=== PATIENT | male | born 2000 | race African-American/Black ===

== ENCOUNTER 2025-05-02 20:30 | Emergency (ER) | payer BC ==
[2025-05-02 20:37] VITALS: TEMP 96.7
[2025-05-02] MEDS: TYLENOL 325 MG PO STA (21:10)
[2025-05-02] MEDS ORDERED: TYLENOL 325 MG ONE (21:10)
--- NOTE | 2025-05-02 21:31 | ERPHSYRPT ---
- History of Present Illness Time Seen by Provider: 05/02/25 20:32 Patient Subjective Stated Complaint: hurt foot playing basketball yesterday evening Triage Nursing Assessment: Pt ambulated into ER without diff. Pt c/o left foot pain to the top of the foot after playing basketball yesterday evening at 8pm. Pt has some tenderness and slight edema noted. Left pedal pulse strong. No obvious deformity noted. Physician History: HISTORY OF PRESENT ILLNESS 24-year-old male presents with left foot pain following a basketball injury yesterday evening around 20:00. Pain is localized to the top of the foot and is exacerbated by pressure. He took ibuprofen at home prior to arrival. He denies numbness, tingling, weakness, bruising, ecchymosis, and ankle tenderness. Allergies/Adverse Reactions: No Known Drug Allergies Allergy (Unverified 05/02/25 20:37) Home Medications: No Reportable Medications [No Reported Medications] 05/02/25 [History] Hx Tetanus, Diphtheria Vaccination/Date Given: Yes Hx Influenza Vaccination/Date Given: No Hx Pneumococcal Vaccination/Date Given: No Travel Risk - International Travel Have you traveled outside of the country in past 3 weeks: No - Emerging Infectious Disease Are you exhibiting symptoms associated with any current EIDs: No - Past Medical History Pertinent Past Medical History: Yes Neurological History: No Pertinent History ENT History: No Pertinent History Cardiac History: Other Respiratory History: No Pertinent History Endocrine Medical History: No Pertinent History Musculoskeletal History: No Pertinent History GI Medical History: No Pertinent History History: No Pertinent History Psycho-Social History: No Pertinent History Male Reproductive Disorders: No Pertinent History Other Medical History: heart murmur - Past Surgical History Past Surgical History: No - Social History Smoking Status: Current every day smoker Exposure to second hand smoke: No Drug Use: none - Social Determinants of Health Will the patient participate in the screening: Yes Do you worry about a steady place to live?: No Do you have any problems with any of the following?: No known problems In the past 12 months,have you had to go without utilities?: No Transportation Issues: No Has anyone in your support network made you feel unsafe?: No Have you or anyone in your house had to go w/o enough food: No - Nursing Vital Signs Nursing Vital Signs: Initial Vital Signs Temperature 96.7 F 05/02/25 20:35 Pulse Rate 82 05/02/25 20:35 Respiratory Rate 16 05/02/25 20:35 Blood Pressure 143/80 05/02/25 20:35 O2 Sat by Pulse Oximetry 98 05/02/25 20:35 Pain Scale Pain Intensity 8 - Physical Exam SpO2: 98 Comments: 05/02/25 21:33 PHYSICAL EXAM Vitals: Reviewed in chart. General: Alert and oriented; No acute distress. HEENT: Normocephalic. Respiratory: Respirations are non-labored; Symmetrical chest wall expansion. Cardiovascular: Normal peripheral perfusion; No edema. GI: Non-tender. Integumentary: Warm. Musculoskeletal: Mild tenderness of midfoot; No bruising or ecchymosis; Neurovascular intact distally; Intact capillary refill; Intact sensation; Intact toe range of motion; No ankle tenderness; 2+ PT DP pulses. Neurologic: Alert; Normal speech. Psychiatric: Appropriate. Ordered Tests: Active Orders 24 hr Category Date Time Status FOOT (MINIMUM 3 VIEWS) Stat Exams 05/02/25 20:49 Taken Medication Summary Discontinued Medications Generic Name Dose Route Start Last Admin Trade Name Emmanuelq PRN Reason Stop Dose Admin Acetaminophen 975 mg 05/02/25 20:51 05/02/25 21:10 Acetaminophen 325 Mg Tablet PO 05/02/25 20:52 975 mg STAT STA Administration Acetaminophen Confirm 05/02/25 21:10 Acetaminophen 325 Mg Tablet Administered 05/02/25 21:11 Dose 975 mg .ROUTE .[employer] ONE - Progress Progress Note: 05/02/25 21:33 SUMMARY 24-year-old male presented with left foot pain after basketball injury. Exam showed mild midfoot tenderness without bruising, ecchymosis, or ankle involvement; neurovascular status intact. Foot X-ray interpreted as showing no acute fracture. Low pretest probability for significant injury; presentation met criteria for [place] [employer] Rules, supporting outpatient management. Discharged home with crutches and postop shoe, advised to follow up with orthopedics in the morning. Return precautions discussed. IMAGING This imaging was independently interpreted by me. We do not have Radiology over- reads available today for x-ray imaging, and the final report of this image will be read by radiology at a later date. If there is discrepancy, radiology to inform the staff or patient of any abnormality or incidental finding. Patient/family informed of this and agreeable with evaluation and management. On my limited, preliminary interpretation of the image: No obvious fracture of x-ray foot MEDICATION/FLUID ADMINISTRATION - Patient was administered Tylenol in the ED. PATIENT DISCUSSION I discussed available results with the patient. All findings, imaging results, treatment provided, discharge plan, and follow-up recommendations were reviewed. The patients questions were addressed. MEDICAL DECISION MAKING This 24-year-old male presented with left foot pain following a basketball injury. Examination revealed mild tenderness of the midfoot without bruising, ecchymosis, or ankle tenderness. Neurovascular status was intact distally, with normal capillary refill, sensation, toe range of motion, and palpable pulses. X- ray of the foot was interpreted as showing no acute fracture. Pain was managed with Tylenol in the ED, and crutches with a postop shoe will be provided for support. Given the absence of fracture and neurovascular compromise, the patient is safe for discharge home with instructions to follow up with the orthopedic clinic in the morning. Return precautions were discussed. DISPOSITION Discharge: Home Current findings satisfy outpatient-level criteria: pain isolated to midfoot, normal neurovascular exam, and negative foot X-ray. Outpatient follow-up with orthopedics and return precautions were provided. Condition: Improved Patient is resting well. Discussed case in detail and all results reviewed. Patient agrees with out-patient follow up for further evaluation of their condition. I explained medical problems represent dynamic processes and my evaluation today represents a single point in time and that the problem may evolve. The patient asked questions and I answered until my diagnosis, concerns and plan for treatment were fully understood. The patient is awake, alert, oriented, coherent, and lucid. The patient is comfortable with following up for further evaluation of their condition. Patient verbalized understanding and agrees with plan. - Departure Departure Disposition: Home Clinical Impression: Foot pain Condition: Stable Critical Care Time: No Referrals: JOSUE MAGAÑA [ACTIVE STAFF, [facility]ILY [facility]ACT[facility]] - Follow up/PCP as directed BEAU JIMENEZ MD [ACTIVE STAFF, ORTHOPEDICS] - [facility] [id number] Instructions: Foot Sprain (DC) Additional Instructions: Your preliminary read of the x-ray did not show a fracture. The radiologist should read the x-ray tomorrow. Please follow-up with the orthopedic clinic tomorrow morning. They have walk-in clinic from 8 AM to 10 AM. Please call the patient's PCP office tomorrow, follow-up with your primary care doctor in the next few days. Please return to the ED if the patient has any new, worsening, or ongoing symptoms, or if their symptoms are not improving as expected.
[2025-05-02 21:45] VITALS: BP 172/96; PULSE 72; RESP 17; O2SAT 99
--- NOTE | 2025-05-03 08:35 | XRAY ---
Indication: Pain. Comparison: None 3 nonweightbearing views left foot obtained. No bony, articular, or soft tissue abnormalities.
== END 2025-05-02 21:46 | disposition home or self-care (01) ==
LOC: ED 20:30
DX: M79.672 Pain in left foot (principal); Z72.0 Tobacco use

== ENCOUNTER 2025-06-09 17:24 | Emergency (ER) | payer BC ==
[2025-06-09 17:29] VITALS: BP 165/76; TEMP 96.2
[2025-06-09] MEDS ORDERED: Compazine 10 MG/2 ML ONE (17:48)
[2025-06-09] MEDS: Compazine 10 MG/2 ML IV ONE (17:49)
--- NOTE | 2025-06-09 17:57 | ERPHSYRPT ---
- History of Present Illness Patient Subjective Stated Complaint: PT STATES HE HAS BEEN VOMITING AND HAVING DIARRHEA X1 DAY Triage Nursing Assessment: PT ARRIVES TO THE ED VIA PRIVATE VEHICLE, PT IS ABLE TO AMBULATE INTO THE ER ROOM WITHOUT DIFFICULTY. PT IS ALERT AND ORIENTED X4, NO SIGNS OF RESPIRATORY DISTRESS, PULSES EQUAL BILATERALLY. PT STATES HE HAS HAD A FEVER/VOMITING/DIARRHEA SINCE LAST NIGHT. PT STATES THAT HE HAS BEEN ABLE TO KEEP DOWN SOME WATER BUT IF HE TRIES TO EAT ANYTHING HE VOMITS. PT IS TENDER TO PALPATION OF THE ABDOMEN AND STATES THAT HE HAS BEEN HAVING PAIN UP IN HIS CHEST TODAY WELL. PT STATES HE HAS BEEN COUGHING AND GETTING UP THICK GREEN MUCUS. PT STATES THAT HE WAS ABLE TO GET HIS FEVER TO BREAK WITH TYLENOL. PT STATES HE HAS HAD TO LEAVE WORK AT THE INTERMEDIATE EARLY BOTH YESTERDAY AND TODAY FOR BEING SICK. Physician History: N/V/D With abdominal cramping, he was able to tolerate liquids but not solid foods, onset of symptoms yesterday, he was scheduled to work today but is unable to go there due to symptoms Timing/Duration: day(s) (1) Quality: cramping Abdominal Pain Onset Location: generalized abdomen Pain Radiation: no radiation Severity of Pain-Max: moderate Severity of Pain-Current: mild Associated Symptoms: diarrhea, nausea, vomiting Previous symptoms: no prior history Allergies/Adverse Reactions: No Known Drug Allergies Allergy (Verified 06/09/25 17:44) Home Medications: No Reportable Medications [No Reported Medications] 05/02/25 [History] Hx Tetanus, Diphtheria Vaccination/Date Given: Yes Hx Influenza Vaccination/Date Given: No Hx Pneumococcal Vaccination/Date Given: No Immunizations Up to Date: Yes Travel Risk - International Travel Have you traveled outside of the country in past 3 weeks: No - Emerging Infectious Disease Are you exhibiting symptoms associated with any current EIDs: Yes Symptoms: Abdominal Pain, Diarrhea, Fever, Vomitting - Past Medical History Pertinent Past Medical History: Yes Neurological History: No Pertinent History ENT History: No Pertinent History Cardiac History: Other Respiratory History: No Pertinent History Endocrine Medical History: No Pertinent History Musculoskeletal History: No Pertinent History GI Medical History: No Pertinent History History: No Pertinent History Psycho-Social History: No Pertinent History Male Reproductive Disorders: No Pertinent History Other Medical History: heart murmur - Past Surgical History Past Surgical History: No - Social History Smoking Status: Never smoker Exposure to second hand smoke: No Drug Use: none - Social Determinants of Health Will the patient participate in the screening: Yes Do you worry about a steady place to live?: No Do you have any problems with any of the following?: No known problems In the past 12 months,have you had to go without utilities?: No Transportation Issues: No Has anyone in your support network made you feel unsafe?: No Have you or anyone in your house had to go w/o enough food: No - Nursing Vital Signs Nursing Vital Signs: Initial Vital Signs Temperature 96.2 F 06/09/25 17:29 Pulse Rate 85 06/09/25 17:29 Respiratory Rate 12 06/09/25 17:29 Blood Pressure 165/76 06/09/25 17:29 O2 Sat by Pulse Oximetry 100 06/09/25 17:29 Pain Scale Pain Intensity 7 - Physical Exam General Appearance: no apparent distress, alert, obese Eye Exam: PERRL/EOMI, eyes nml inspection Ears, Nose, Throat Exam: normal ENT inspection, pharynx normal, moist mucous membranes Neck Exam: normal inspection, non-tender, supple, full range of motion Respiratory Exam: normal breath sounds, lungs clear, No respiratory distress Cardiovascular Exam: regular rate/rhythm, normal heart sounds Gastrointestinal/Abdomen Exam: soft, tenderness (Mild diffuse), No mass Back Exam: normal inspection, normal range of motion, No CVA tenderness, No vertebral tenderness Extremity Exam: normal inspection, normal range of motion, pelvis stable Neurologic Exam: alert, oriented x 3, cooperative, normal mood/affect, nml cerebellar function, sensation nml, No motor deficits Skin Exam: normal color, warm, dry SpO2 Interpretation: normal SpO2: 96 Ordered Tests: Active Orders 24 hr Category Date Time Status BMP Stat Lab 06/09/25 17:44 Completed CBC W DIFF Stat Lab 06/09/25 17:44 Completed Medication Summary Discontinued Medications Generic Name Dose Route Start Last Admin Trade Name Freq PRN Reason Stop Dose Admin Sodium Chloride 1,000 mls @ 999 mls/hr 06/09/25 17:44 06/09/25 18:50 Sodium Chloride 0.9% 1000 Ml IV 06/09/25 18:44 Infused .Q1H1M STA Infusion Sodium Chloride Confirm 06/09/25 17:48 Sodium Chloride 0.9% 1000 Ml Administered 06/09/25 17:49 Dose 1,000 mls @ ud .ROUTE .[employer] ONE Prochlorperazine Edisylate 5 mg 06/09/25 17:44 06/09/25 17:49 Prochlorperazine Edisylate 10 Mg/2 Ml Vial IV 06/09/25 17:45 5 mg STAT ONE Administration Prochlorperazine Edisylate Confirm 06/09/25 17:48 Prochlorperazine Edisylate 10 Mg/2 Ml Vial Administered 06/09/25 17:49 Dose 10 mg .ROUTE .[employer] ONE Lab/Rad Data: Laboratory Result Diagrams 06/09/25 17:44 06/09/25 17:44 Laboratory Results 06/09/25 06/09/25 Range/Units 17:44 17:44 WBC 6.4 (4.23-9.07) x10^3/uL RBC 5.32 (4.63-6.08) x10^6/uL Hgb 15.7 (13.7-17.5) g/dL Hct 47.4 (40.1-51.0) % MCV 89.1 (79.0-92.2) fL MCH 29.5 (25.7-32.2) pg MCHC 33.1 (32.3-36.5) g/dL RDW 13.1 (11.6-14.4) % Plt Count 276 (163-337) x10^3/uL MPV 9.6 (9.4-12.4) fL Gran % 40.6 (34.0-67.9) % Immature Gran % (Auto) 0.3 (0.001-0.429) % Nucleat RBC Rel Count 0.0 (0.00-0.2) % Eos # (Auto) 0.39 (0.04-0.54) x10^3/uL Immature Gran # (Auto) 0.02 (0.001-0.031) x10^3u/L Absolute Lymphs (auto) 2.42 (1.32-3.57) x10^3/uL Absolute Monos (auto) 0.93 H (0.30-0.82) x10^3/uL Absolute Nucleated RBC 0.00 (0.00-0.012) x10^3u/L Lymphocytes % 38.1 (21.8-53.1) % Monocytes % 14.6 H (5.3-12.2) % Eosinophils % 6.1 (0.8-7.0) % Basophils % 0.3 (0.2-1.2) % Absolute Granulocytes 2.57 (1.78-5.38) x10^3/uL Basophils # 0.02 (0.01-0.08) x10^3/uL Sodium 138 (135-145) mmol/L Potassium 4.2 (3.5-5.1) mmol/L Chloride 106 (98-107) mmol/L Carbon Dioxide 25 (22-30) mmol/L Anion Gap 11.4 (5-15) MEQ/L BUN 16 (9-20) mg/dL Creatinine 1.11 (0.66-1.25) mg/dL Estimated GFR 96.3 ML/MIN Glucose 96 (74-106) mg/dL Calcium 9.7 (8.4-10.2) mg/dL - Progress Progress: improved Progress Note: 06/09/25 19:23 Sutures out 12 to 14 days clinically improved, discussed lab work, outpatient follow-up and treatment - Departure Departure Disposition: Home Clinical Impression: Gastroenteritis and colitis, viral Condition: Stable Critical Care Time: No Referrals: SARITHA ESPINOSA MD [ACTIVE STAFF, [facility]] - Follow up with PCP 5 days Instructions: Viral gastroenteritis in adults, Clear liquid diet Forms: Work/School Release Form
[2025-06-09 17:59] LABS: BASOPHIL % 0.3 % (0.2-1.2); Basophil (Absolute #) 0.02 x10^3/uL (0.01-0.08); Eosinophil (Absolute #) 0.39 x10^3/uL (0.04-0.54); Hematocrit 47.4 % (40.1-51.0); Hemoglobin 15.7 g/dL (13.7-17.5); IMMATURE GRAN # 0.02 x10^3u/L (0.001-0.031); IMMATURE GRAN % 0.3 % (0.001-0.429); Lymphocyte (Absolute #) 2.42 x10^3/uL (1.32-3.57); Mean Corpuscular Hemoglobin 29.5 pg (25.7-32.2); Mean Corpuscular Hgb Concent. 33.1 g/dL (32.3-36.5); Monocyte (Absolute #) 0.93 x10^3/uL (0.30-0.82); NUCLEATED RBC # 0.00 x10^3u/L (0.00-0.012); NUCLEATED RBC % 0.0 % (0.00-0.2); Platelet Count 276 x10^3/uL (163-337); Red Blood Count 5.32 x10^6/uL (4.63-6.08); White Blood Count 6.4 x10^3/uL (4.23-9.07)
[2025-06-09 18:15] LABS: Calcium 9.7 mg/dL (8.4-10.2); Carbon Dioxide 25.0 mmol/L (22-30); Creatinine 1 1.11 mg/dL (0.66-1.25); EST GLOMERULAR FILTRATION RATE 96.3 ML/MIN; Glucose 96.0 mg/dL (74-106); Potassium 4.2 mmol/L (3.5-5.1)
[2025-06-09 19:01] VITALS: PULSE 72; RESP 15
[2025-06-09 19:25] VITALS: O2SAT 96
== END 2025-06-09 19:33 | disposition home or self-care (01) ==
LOC: ED 17:24
DX: A08.4 Viral intestinal infection, unspecified (principal); R11.2 Nausea with vomiting, unspecified; R10.84 Generalized abdominal pain